=== PATIENT | male | born 1990 | race Caucasian/White ===

== ENCOUNTER 2020-05-14 16:06 | Emergency (ER) | payer OTHER ==
[~2020-05-14] VITALS: Ht 180.3 cm; Wt 70.3 kg
[2020-05-14 16:14] VITALS: BP 109/72
[2020-05-14] MEDS ORDERED: BACTRIM DS TAB1 EACH PO (16:34)
[2020-05-14] MEDS ORDERED: KEFLEX500 M2 PO (16:34)
== END 2020-05-14 16:57 | disposition home or self-care (01) ==
LOC: M.ERS 16:06
DX: L02.31 Cutaneous abscess of buttock (principal)

== ENCOUNTER 2021-11-26 18:19 | Emergency (ER) | payer OTHER ==
[~2021-11-26] VITALS: Ht 177.8 cm; Wt 68.0 kg
[~2021-11-26 18:19] MED LIST: BACTRIM DS TAB1 EACH PO; KEFLEX500 M2 PO
[2021-11-26 19:11] VITALS: BP 122/71
== END 2021-11-26 20:00 | disposition left against medical advice (07) ==
LOC: M.ERS 18:19
DX: M25.571 Pain in right ankle and joints of right foot (principal); Z53.21 Procedure and treatment not carried out due to patient leaving prior to being seen by health care provider; Z98.890 Other specified postprocedural states